=== PATIENT | male | born 1995 | race Caucasian/White ===

== ENCOUNTER 2017-12-15 12:30 | Emergency (ER) | payer BC ==
[2017-12-15] MEDS: DEXAMETHASONE 10 MG/ML 1 ML INJ IV (16:09)
[2017-12-15] MEDS: CEFTRIAXONE 1 GM/50 ML (PMX) 50 ML IVPB (16:09)
[2017-12-15] MEDS: KETOROLAC 30 MG INJ IV (16:09)
[2017-12-15] MEDS: SOD CHLORIDE 0.9% 1,000 ML IV (16:10)
== END 2017-12-15 17:33 | disposition home or self-care (01) ==
LOC: FTE 12:30
DX: J02.9 Acute pharyngitis, unspecified (principal)
CPT/HCPCS: 96365; 96375; 99284-25